=== PATIENT | female | born 1955 | race Caucasian/White ===

== ENCOUNTER → 2016-12-22 | Outpatient (CLI) | payer MEDICAID ==
--- NOTE | 2016-12-22 13:35 | DX ---
Sacrum and coccyx - 3 views Indication: Pain. Fall. Comparison: None Technique: Lateral and 2 AP views. Findings: The bones are anatomically aligned. No acute fracture. 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 Impression: Negative. No acute fracture.
--- NOTE | 2016-12-22 13:39 | DX ---
Left Knee, 3 standing views including a sunrise view History: Fall December 02, 2016, continued pain Comparison: None Findings: Alignment and bony integrity is normal. No fracture or knee joint effusion is identified. T he patellofemoral joint is normally aligned. There is no radiopaque callus or periosteal reaction to indicate a healing fracture. Impression: No posttraumatic abnormality identified. If symptoms continue, knee MRI may be complement toby.
== END ==
LOC: FIMAGING 12:35
PROVIDERS: ATTEND Physician Assistant
DX: M25.562 Pain in left knee (principal); M53.3 Sacrococcygeal disorders, not elsewhere classified; M54.5 Low back pain

== ENCOUNTER → 2017-03-15 | Outpatient (CLI) | payer MEDICAID | LOC: FIMAGING 14:07 | PROVIDERS: ATTEND Internal Medicine | DX: R76.11 Nonspecific reaction to tuberculin skin test without active tuberculosis (principal) ==

== ENCOUNTER 2017-10-18 11:22 | Emergency (ER) | payer MEDICAID ==
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
[2017-10-18] MEDS ORDERED: ACETAMINOPHEN 325 MG TAB ONE (13:54)
[2017-10-18] MEDS ORDERED: ACETAMINOPHEN 325 MG TAB PO ONE (13:55)
[2017-10-18 14:18] VITALS: BP 115/74; PULSE 71; RESP 16; TEMP 97.9; O2SAT 96
== END 2017-10-18 14:18 | disposition home or self-care (01) ==
DX: S09.90XA Unspecified injury of head, initial encounter (principal); S70.02XA Contusion of left hip, initial encounter; V78.5XXA Driver of bus injured in noncollision transport accident in traffic accident, initial encounter; Y92.410 Unspecified street and highway as the place of occurrence of the external cause; Y93.89 Activity, other specified